=== PATIENT | female | born 1985 | race Caucasian/White ===

== ENCOUNTER 2020-06-14 07:23 | Emergency (ER) | payer OTHER ==
[2020-06-14] MEDS ORDERED: Morphine 4 MG/ML VIAL ONE (08:06)
[2020-06-14] MEDS ORDERED: Metoclopramide HCl 10 MG/2 ML VIAL ONE (08:06)
[2020-06-14 08:28] LABS: #Basophils 0.1 10x3/uL (0.0-0.2); #Eosinphils 0.1 10x3/uL (0.0-0.5); #Monocytes 0.7 10x3/uL (0.0-1.1); #Neutrophils 4.4 10x3/uL (1.5-8.4); %Basophils 0.5 % (0.0-2.0); %Eosinophils 1.1 % (0.0-6.0); %Lymphocytes 45.9 % (18.0-47.0); Hemoglobin 13.2 g/dL (12.0-15.5); Mean Corpuscular HGB CONC 32.9 g/dL (32.0-36.0); Mean Corpuscular Hemoglobin 30.6 pg (27.0-33.0); Mean Corpuscular Volume 92.8 fl (81.6-98.3); Mean Platelet Volume 8.8 fl (7.4-10.4); Platelet Count 296 10x3/uL (150-450); RBC Distribution Width 11.9 % (11.5-14.5); Red Blood Cell (RBC) Count 4.32 10x6/uL (3.90-5.03); White Blood Cell (WBC) Count 9.9 10x3/uL (3.5-10.5)
[2020-06-14 08:48] LABS: Pregnancy Test - Urine (BHCG) Negative (Negative); Pregu Control Background? CLEAR/WHITE (CLR/WHITE); Pregu Control Bar Appear? YES (CONTROL BAR)
[2020-06-14 09:04] LABS: ALT (SGPT) 17 U/L (8-55); AST (SGOT) 14 U/L (5-34); Albumin 4.5 g/dL (3.5-5.0); Alkaline Phosphatase 66 U/L (40-110); Anion Gap 17 mmol/L (10-20); BUN (Urea Nitrogen) 14 mg/dL (7.0-18.7); Bilirubin, Total 0.2 mg/dL (0.2-1.2); Calc. Creatinine Clearance 0 mL/min (70-130); Calcium 8.9 mg/dL (7.8-10.44); Carbon Dioxide 15 mmol/L (22-29); Chloride 112 mmol/L (98-107); Globulin 2.6 g/dL (2.4-3.5); Glucose 105 mg/dL (70-105); Lipase 72 U/L (8-78); Potassium 3.4 mmol/L (3.5-5.1); Protein, Total 7.1 g/dL (6.0-8.3); Sodium 141 mmol/L (136-145)
[2020-06-14 09:11] LABS: Bilirubin Neg (Negative); Blood, Urine Negative (Negative); Clarity Clear (Clear); Glucose, Urine (Dipstick) Normal (Negative); Ketone, Urine Negative (Negative); Leukocyte 25 (Negative); Nitrite Negative (Negative); Protein, Urine (Dipstick) Negative (Neg-Trace); Urobilinogen Normal mg/dL (Less than 2)
[2020-06-14 09:15] LABS: RBC/HPF None Seen HPF (0-3); Squamous Epithelial 0-3 HPF (0-3); WBC/HPF 0-3 HPF (0-3)
[2020-06-14 09:16] LABS: Bacteria/HPF Rare-Few HPF (None Seen)
== END 2020-06-14 10:30 | disposition home or self-care (01) ==
LOC: CSHERS 07:23
DX: R10.31 Right lower quadrant pain (principal); R10.32 Left lower quadrant pain; J45.909 Unspecified asthma, uncomplicated; E66.9 Obesity, unspecified; F17.210 Nicotine dependence, cigarettes, uncomplicated
CPT/HCPCS: 74177; 80053; 81003; 81015; 81025; 83690; 85025; 96365; 96375; J2270; J2765

== ENCOUNTER 2021-04-02 21:37 | Emergency (ER) | payer OTHER | END 2021-04-02 22:51 | disposition left against medical advice (07) | LOC: CSHERS 21:37 | DX: Z53.21 Procedure and treatment not carried out due to patient leaving prior to being seen by health care provider (principal) ==

== ENCOUNTER 2022-06-09 20:55 | Emergency (ER) | payer OTHER ==
[2022-06-09 23:53] LABS: #Eosinphils 0.1 10x3/uL (0.0-0.5); #Monocytes 0.5 10x3/uL (0.0-1.1); #Neutrophils 5.7 10x3/uL (1.5-8.4); %Basophils 0.3 % (0.0-2.0); %Eosinophils 1.2 % (0.0-6.0); %Lymphocytes 42.6 % (18.0-47.0); %Monocytes 4.5 % (0.0-10.0); Hemoglobin 12.8 g/dL (12.0-15.5); Mean Corpuscular HGB CONC 33.2 g/dL (32.0-36.0); Mean Corpuscular Hemoglobin 29.6 pg (27.0-33.0); Mean Corpuscular Volume 88.9 fl (81.6-98.3); Mean Platelet Volume 8.7 fl (7.4-10.4); Platelet Count 349 10x3/uL (150-450); Red Blood Cell (RBC) Count 4.33 10x6/uL (3.90-5.03); White Blood Cell (WBC) Count 11.2 10x3/uL (3.5-10.5)
[2022-06-10 00:08] LABS: ALT (SGPT) 21 U/L (8-55); AST (SGOT) 15 U/L (5-34); Albumin 4.5 g/dL (3.5-5.0); Alkaline Phosphatase 79 U/L (40-110); Anion Gap 16 mmol/L (10-20); BUN (Urea Nitrogen) 10 mg/dL (7.0-18.7); Bilirubin, Total 0.3 mg/dL (0.2-1.2); Calc. Creatinine Clearance 0 mL/min (70-130); Carbon Dioxide 16 mmol/L (22-29); Chloride 112 mmol/L (98-107); Estimated GFR 90; Globulin 2.4 g/dL (2.4-3.5); Glucose 100 mg/dL (70-105); Potassium 3.3 mmol/L (3.5-5.1); Protein, Total 6.9 g/dL (6.0-8.3); Sodium 141 mmol/L (136-145)
== END 2022-06-10 00:29 | disposition home or self-care (01) ==
LOC: CSHERS 20:55
DX: R07.9 Chest pain, unspecified (principal); F17.210 Nicotine dependence, cigarettes, uncomplicated
CPT/HCPCS: 36415; 71045; 80053; 83880; 84484; 85025; 93005

== ENCOUNTER 2022-07-14 12:57 | Emergency (ER) | payer OTHER ==
[2022-07-14 13:54] LABS: #Basophils 0.1 10x3/uL (0.0-0.2); #Eosinphils 0.1 10x3/uL (0.0-0.5); #Monocytes 0.6 10x3/uL (0.0-1.1); #Neutrophils 6.2 10x3/uL (1.5-8.4); %Basophils 0.5 % (0.0-2.0); %Eosinophils 0.5 % (0.0-6.0); %Lymphocytes 28.8 % (18.0-47.0); %Monocytes 5.6 % (0.0-10.0); %Neutrophils 63.5 % (40.0-75.0); Hemoglobin 12.9 g/dL (12.0-15.5); Mean Corpuscular HGB CONC 32.8 g/dL (32.0-36.0); Mean Corpuscular Hemoglobin 30.1 pg (27.0-33.0); Mean Corpuscular Volume 91.8 fl (81.6-98.3); Mean Platelet Volume 8.6 fl (7.4-10.4); Platelet Count 430 10x3/uL (150-450); RBC Distribution Width 12.7 % (11.5-14.5); Red Blood Cell (RBC) Count 4.28 10x6/uL (3.90-5.03); White Blood Cell (WBC) Count 9.8 10x3/uL (3.5-10.5)
[2022-07-14] MEDS ORDERED: Lidocaine Viscous Sol 2% 15 ml UD Cup ONE (13:54)
[2022-07-14] MEDS ORDERED: Mag-Al Plus 1200 MG/1200 MG/120 MG/30 ML UDCUP ONE (13:54)
[2022-07-14 14:06] LABS: ALT (SGPT) 10 U/L (8-55); AST (SGOT) 9 U/L (5-34); Albumin 4.6 g/dL (3.5-5.0); Alkaline Phosphatase 79 U/L (40-110); Anion Gap 16 mmol/L (10-20); BUN (Urea Nitrogen) 11 mg/dL (7.0-18.7); Bilirubin, Total 0.1 mg/dL (0.2-1.2); Calc. Creatinine Clearance 0 mL/min (70-130); Calcium 9.2 mg/dL (7.8-10.44); Carbon Dioxide 14 mmol/L (22-29); Chloride 114 mmol/L (98-107); Estimated GFR 99; Globulin 2.3 g/dL (2.4-3.5); Glucose 102 mg/dL (70-105); Lipase 73 U/L (8-78); Potassium 4.4 mmol/L (3.5-5.1); Protein, Total 6.9 g/dL (6.0-8.3); Sodium 140 mmol/L (136-145)
[2022-07-14] MEDS ORDERED: predniSONE 20 MG TAB ONE (14:36)
[2022-07-14] MEDS ORDERED: Ipratropium/Albuterol 3 ML NEB ONE (14:38)
[2022-07-14] MEDS ORDERED: Metoclopramide HCl 10 MG TAB ONE (15:47)
== END 2022-07-14 16:45 | disposition home or self-care (01) ==
LOC: CSHERS 12:57
DX: J45.901 Unspecified asthma with (acute) exacerbation (principal); E86.0 Dehydration; F17.210 Nicotine dependence, cigarettes, uncomplicated
CPT/HCPCS: 36415; 71045; 80053; 83690; 84484; 85025; 93005; 94640; 94760; J7512; J7620

== ENCOUNTER 2022-07-23 03:55 | Emergency (ER) | payer MEDICARE, OTHER ==
[2022-07-23] MEDS ORDERED: diphenhydrAMINE 50 MG/ML VIAL ONE ×2 (04:21→05:45)
[2022-07-23] MEDS ORDERED: Metoclopramide HCl 10 MG/2 ML VIAL ONE ×2 (04:21→05:44)
[2022-07-23] MEDS ORDERED: Ketorolac Tromethamine 30 MG/ML VIAL ONE (04:21)
[2022-07-23 04:41] LABS: #Basophils 0.1 10x3/uL (0.0-0.2); #Eosinphils 0.1 10x3/uL (0.0-0.5); #Monocytes 1.1 10x3/uL (0.0-1.1); %Basophils 0.5 % (0.0-2.0); %Eosinophils 0.7 % (0.0-6.0); %Lymphocytes 31.4 % (18.0-47.0); %Monocytes 6.5 % (0.0-10.0); %Neutrophils 59.7 % (40.0-75.0); Hemoglobin 14.2 g/dL (12.0-15.5); Mean Corpuscular HGB CONC 33.7 g/dL (32.0-36.0); Mean Corpuscular Hemoglobin 30.1 pg (27.0-33.0); Mean Corpuscular Volume 89.4 fl (81.6-98.3); Mean Platelet Volume 8.7 fl (7.4-10.4); Platelet Count 430 10x3/uL (150-450); RBC Distribution Width 12.9 % (11.5-14.5); Red Blood Cell (RBC) Count 4.71 10x6/uL (3.90-5.03); White Blood Cell (WBC) Count 16.8 10x3/uL (3.5-10.5)
[2022-07-23 04:53] LABS: BHCG - Serum Negative (NEGATIVE); Pregs Control Background? CLEAR/WHITE (CLR/WHITE); Pregs Control Bar Appear? YES (CONTROL BAR)
[2022-07-23 04:56] LABS: ALT (SGPT) 12 U/L (8-55); AST (SGOT) 9 U/L (5-34); Albumin 4.8 g/dL (3.5-5.0); Alkaline Phosphatase 70 U/L (40-110); Anion Gap 18 mmol/L (10-20); BUN (Urea Nitrogen) 12 mg/dL (7.0-18.7); Bilirubin, Total 0.2 mg/dL (0.2-1.2); Calc. Creatinine Clearance 0 mL/min (70-130); Calcium 9.7 mg/dL (7.8-10.44); Carbon Dioxide 18 mmol/L (22-29); Chloride 110 mmol/L (98-107); Estimated GFR 89; Globulin 2.8 g/dL (2.4-3.5); Glucose 119 mg/dL (70-105); Lipase 121 U/L (8-78); Potassium 3.6 mmol/L (3.5-5.1); Protein, Total 7.6 g/dL (6.0-8.3); Sodium 142 mmol/L (136-145)
[2022-07-23] MEDS ORDERED: Haloperidol Lactate 5 MG/ML VIAL ONE (06:22)
== END 2022-07-23 06:54 | disposition home or self-care (01) ==
LOC: CSHERS 03:55
DX: G43.919 Migraine, unspecified, intractable, without status migrainosus (principal); E66.9 Obesity, unspecified; F17.210 Nicotine dependence, cigarettes, uncomplicated
CPT/HCPCS: 80053; 83690; 84703; 85025; 99284; J1200; J1630; J1885; J2765

== ENCOUNTER 2022-09-21 20:21 | Emergency (ER) | payer OTHER, MEDICAID ==
[2022-09-21] MEDS ORDERED: Metoclopramide HCl 10 MG/2 ML VIAL ONE ×2 (22:17→23:29)
[2022-09-21] MEDS ORDERED: Ketorolac Tromethamine 30 MG/ML VIAL ONE ×2 (22:17→23:30)
[2022-09-21 22:47] LABS: #Basophils 0.1 10x3/uL (0.0-0.2); #Eosinphils 0.1 10x3/uL (0.0-0.5); #Monocytes 0.8 10x3/uL (0.0-1.1); #Neutrophils 5.5 10x3/uL (1.5-8.4); %Basophils 0.4 % (0.0-2.0); %Eosinophils 0.8 % (0.0-6.0); %Lymphocytes 42.4 % (18.0-47.0); %Monocytes 7.4 % (0.0-10.0); %Neutrophils 48.6 % (40.0-75.0); Hemoglobin 15.7 g/dL (12.0-15.5); Mean Corpuscular HGB CONC 34.3 g/dL (32.0-36.0); Mean Corpuscular Hemoglobin 30.1 pg (27.0-33.0); Mean Corpuscular Volume 87.7 fl (81.6-98.3); Mean Platelet Volume 8.6 fl (7.4-10.4); Platelet Count 408 10x3/uL (150-450); RBC Distribution Width 12.4 % (11.5-14.5); Red Blood Cell (RBC) Count 5.22 10x6/uL (3.90-5.03); White Blood Cell (WBC) Count 11.3 10x3/uL (3.5-10.5)
[2022-09-21 22:56] LABS: ALT (SGPT) 17 U/L (8-55); AST (SGOT) 18 U/L (5-34); Albumin 4.9 g/dL (3.5-5.0); Alkaline Phosphatase 82 U/L (40-110); Anion Gap 15 mmol/L (10-20); BUN (Urea Nitrogen) 9 mg/dL (7.0-18.7); Bilirubin, Total 0.2 mg/dL (0.2-1.2); Calc. Creatinine Clearance 0 mL/min (70-130); Calcium 9.8 mg/dL (7.8-10.44); Carbon Dioxide 18 mmol/L (22-29); Chloride 108 mmol/L (98-107); Estimated GFR 74; Globulin 3.4 g/dL (2.4-3.5); Glucose 89 mg/dL (70-105); Potassium 3.3 mmol/L (3.5-5.1); Protein, Total 8.3 g/dL (6.0-8.3); Sodium 138 mmol/L (136-145)
[2022-09-21] MEDS ORDERED: diphenhydrAMINE 50 MG/ML VIAL ONE (23:30)
== END 2022-09-22 00:50 | disposition home or self-care (01) ==
LOC: CSHERS 20:21
DX: S09.90XA Unspecified injury of head, initial encounter (principal); G43.909 Migraine, unspecified, not intractable, without status migrainosus; J45.909 Unspecified asthma, uncomplicated; W19.XXXA Unspecified fall, initial encounter
CPT/HCPCS: 36416; 70450; 71045; 80053; 85025; 96374; 96375; 96376; J1200; J1885; J2765

== ENCOUNTER 2022-11-09 15:12 | Emergency (ER) | payer OTHER, MEDICARE ==
[2022-11-09] MEDS ORDERED: diphenhydrAMINE 50 MG/ML VIAL ONE (18:31)
[2022-11-09] MEDS ORDERED: Ketorolac Tromethamine 30 MG/ML VIAL ONE (18:31)
[2022-11-09] MEDS ORDERED: Metoclopramide HCl 10 MG/2 ML VIAL ONE (18:31)
[2022-11-09] MEDS ORDERED: Dexamethasone 10 MG/ML VIAL ONE (18:32)
[2022-11-09 19:04] LABS: #Basophils 0.1 10x3/uL (0.0-0.2); #Eosinphils 0.2 10x3/uL (0.0-0.5); #Monocytes 0.7 10x3/uL (0.0-1.1); #Neutrophils 6.1 10x3/uL (1.5-8.4); %Basophils 0.5 % (0.0-2.0); %Eosinophils 1.4 % (0.0-6.0); %Lymphocytes 34.8 % (18.0-47.0); %Monocytes 6.2 % (0.0-10.0); %Neutrophils 56.5 % (40.0-75.0); Hematocrit 38.3 % (34.9-44.5); Hemoglobin 12.1 g/dL (12.0-15.5); Mean Corpuscular HGB CONC 31.6 g/dL (32.0-36.0); Mean Corpuscular Hemoglobin 30.7 pg (27.0-33.0); Mean Corpuscular Volume 97.2 fl (81.6-98.3); Mean Platelet Volume 9.3 fl (7.4-10.4); Platelet Count 380 10x3/uL (150-450); RBC Distribution Width 13.6 % (11.5-14.5); Red Blood Cell (RBC) Count 3.94 10x6/uL (3.90-5.03); White Blood Cell (WBC) Count 10.8 10x3/uL (3.5-10.5)
[2022-11-09 19:16] LABS: Anion Gap 17 mmol/L (10-20); BUN (Urea Nitrogen) 22 mg/dL (7.0-18.7); Calc. Creatinine Clearance 0 mL/min (70-130); Carbon Dioxide 18 mmol/L (22-29); Chloride 112 mmol/L (98-107); Potassium 3.9 mmol/L (3.5-5.1); Sodium 143 mmol/L (136-145)
[2022-11-09 19:17] LABS: Calcium 9.3 mg/dL (7.8-10.44); Estimated GFR 99; Glucose 83 mg/dL (70-105)
[2022-11-09 19:19] LABS: BHCG - Serum Negative (NEGATIVE); Pregs Control Background? CLEAR/WHITE (CLR/WHITE); Pregs Control Bar Appear? YES (CONTROL BAR)
== END 2022-11-09 19:40 | disposition home or self-care (01) ==
LOC: CSHERS 15:12
DX: G43.909 Migraine, unspecified, not intractable, without status migrainosus (principal); R11.0 Nausea
CPT/HCPCS: 36415; 80048; 84703; 85025; 85652; 96374; 96375; J1100; J1200; J1885; J2765

== ENCOUNTER 2022-11-21 17:09 | Emergency (ER) | payer OTHER, MEDICARE ==
[2022-11-21 19:05] LABS: ALT (SGPT) 14 U/L (8-55); AST (SGOT) 13 U/L (5-34); Albumin 4.6 g/dL (3.5-5.0); Alkaline Phosphatase 82 U/L (40-110); Anion Gap 15 mmol/L (10-20); BUN (Urea Nitrogen) 22 mg/dL (7.0-18.7); Bilirubin, Total 0.3 mg/dL (0.2-1.2); Calc. Creatinine Clearance 0 mL/min (70-130); Calcium 9.3 mg/dL (7.8-10.44); Carbon Dioxide 19 mmol/L (22-29); Chloride 111 mmol/L (98-107); Estimated GFR 90; Globulin 2.7 g/dL (2.4-3.5); Glucose 81 mg/dL (70-105); Potassium 3.9 mmol/L (3.5-5.1); Protein, Total 7.3 g/dL (6.0-8.3); Sodium 141 mmol/L (136-145)
[2022-11-21 19:06] LABS: #Basophils 0.1 10x3/uL (0.0-0.2); #Eosinphils 0.1 10x3/uL (0.0-0.5); #Monocytes 0.9 10x3/uL (0.0-1.1); #Neutrophils 7.1 10x3/uL (1.5-8.4); %Basophils 0.4 % (0.0-2.0); %Eosinophils 0.9 % (0.0-6.0); %Lymphocytes 35.7 % (18.0-47.0); %Monocytes 6.8 % (0.0-10.0); %Neutrophils 55.6 % (40.0-75.0); Hematocrit 41.4 % (34.9-44.5); Hemoglobin 13.5 g/dL (12.0-15.5); Mean Corpuscular HGB CONC 32.6 g/dL (32.0-36.0); Mean Corpuscular Hemoglobin 30.4 pg (27.0-33.0); Mean Corpuscular Volume 93.2 fl (81.6-98.3); Mean Platelet Volume 9.1 fl (7.4-10.4); Platelet Count 354 10x3/uL (150-450); RBC Distribution Width 13.2 % (11.5-14.5); Red Blood Cell (RBC) Count 4.44 10x6/uL (3.90-5.03); White Blood Cell (WBC) Count 12.7 10x3/uL (3.5-10.5)
[2022-11-21 20:52] LABS: Actual Bicarbonate (HCO3v) 20.3 mEq/L (22-28); Base Excess -5.1 mEq/L (-2 - +2); Calcium, Ionized (venous) 1.16 mmol/L (1.16-1.32); Chloride (VBG) 112 mmol/L (98-106); Critical Notified By: CP.PH; Hematocrit-VBG 41 % (36.0-47.0); Hemoglobin (Hb) 13.8 g/dL (11.7-15.5); Potassium (VBG) 4.22 mmol/L (3.70-5.30); Puncture Site Other Site; RapidComm Collect By LAB.YY; Sodium 142.3 mmol/L (133-146); pH (venous) 7.333 (7.32-7.43)
== END 2022-11-21 20:00 | disposition home or self-care (01) ==
LOC: CSHERS 17:09
DX: R56.9 Unspecified convulsions (principal); F17.210 Nicotine dependence, cigarettes, uncomplicated
CPT/HCPCS: 80053; 82550; 82805; 84702; 85025; 93005

== ENCOUNTER 2022-12-02 07:18 | Emergency (ER) | payer OTHER, MEDICARE ==
[2022-12-02] MEDS ORDERED: Lidocaine 1% w/Epinephrine 1:200K 30 ML VIAL ONE (07:55)
[2022-12-02] MEDS ORDERED: Metoclopramide HCl 10 MG TAB ONE (08:14)
== END 2022-12-02 08:12 | disposition home or self-care (01) ==
LOC: CSHERS 07:18
DX: N76.4 Abscess of vulva (principal); F17.210 Nicotine dependence, cigarettes, uncomplicated
CPT/HCPCS: 56405

== ENCOUNTER 2022-12-16 16:28 | Emergency (ER) | payer OTHER, MEDICARE ==
[2022-12-16 17:40] LABS: SARS-CoV-2 NAA Rapid Test Not Detected (NotDetected)
[2022-12-16] MEDS ORDERED: Ipratropium/Albuterol 3 ML NEB ONE (17:56)
== END 2022-12-16 18:19 | disposition home or self-care (01) ==
LOC: CSHERS 16:28
DX: B34.9 Viral infection, unspecified (principal); Z20.822 Contact with and (suspected) exposure to COVID-19; F17.210 Nicotine dependence, cigarettes, uncomplicated
CPT/HCPCS: 0240U; 94640; 94760; 99283; J7620

== ENCOUNTER 2023-03-03 19:45 | Day surgery (SDC) | payer OTHER ==
[2023-03-03] MEDS ORDERED: hydrALAZINE 20 MG/ML VIAL SLOW IVP PRN (20:27)
[2023-03-03 20:31] VITALS: BMI 36.9
== END 2023-03-03 20:58 | disposition admitted as inpatient to this hospital (09) ==
LOC: CSHLD/OP 19:45
PROVIDERS: ATTEND Obstetrics & Gynecology
DX: O99.891 Other specified diseases and conditions complicating pregnancy (principal); R10.2 Pelvic and perineal pain
CPT/HCPCS: 76857

== ENCOUNTER 2023-03-03 21:06 | Emergency (ER) | payer OTHER | END 2023-03-03 21:18 | LOC: CSHERS 21:06 | DX: Z53.21 Procedure and treatment not carried out due to patient leaving prior to being seen by health care provider (principal) ==

== ENCOUNTER 2023-05-18 15:19 | Emergency (ER) | payer OTHER ==
[2023-05-18] MEDS ORDERED: Ketorolac Tromethamine 30 MG (1 mL) VIAL ONE (16:11)
[2023-05-18 16:22] LABS: Hematocrit 43.8 % (34.9-44.5); Hemoglobin 15.8 g/dL (12.0-15.5); MDiff Complete? YES; Mean Corpuscular HGB CONC 36.1 g/dL (32.0-36.0); Mean Corpuscular Hemoglobin 31.7 pg (27.0-33.0); Platelet Count 327 10x3/uL (150-450); RBC Distribution Width 12.5 % (11.5-14.5); Red Blood Cell (RBC) Count 4.98 10x6/uL (3.90-5.03); White Blood Cell (WBC) Count 10.1 10x3/uL (3.5-10.5)
[2023-05-18 16:26] LABS: BHCG - Serum Negative (NEGATIVE); Pregs Control Background? CLEAR/WHITE (CLR/WHITE); Pregs Control Bar Appear? YES (CONTROL BAR)
[2023-05-18 16:55] LABS: ALT (SGPT) 19 U/L (8-55); AST (SGOT) 25 U/L (5-34); Albumin 4.5 g/dL (3.5-5.0); Alkaline Phosphatase 80 U/L (40-110); Anion Gap 19 mmol/L (10-20); BUN (Urea Nitrogen) 10 mg/dL (7.0-18.7); Bilirubin, Total 0.2 mg/dL (0.2-1.2); Calc. Creatinine Clearance 0 mL/min (70-130); Calcium 9.2 mg/dL (7.8-10.44); Carbon Dioxide 14 mmol/L (22-29); Chloride 106 mmol/L (98-107); Estimated GFR 117; Globulin 3.9 g/dL (2.4-3.5); Glucose 109 mg/dL (70-105); Lipase 67 U/L (8-78); Potassium 4.3 mmol/L (3.5-5.1); Protein, Total 8.4 g/dL (6.0-8.3); Sodium 135 mmol/L (136-145)
[2023-05-18 17:03] LABS: SARS-CoV-2 NAA Rapid Test DETECTED (NotDetected)
[2023-05-18 17:33] LABS: Lymphocytes 37 % (21-51); Monocytes 5 % (0-10); Neutrophil 57 % (42-75); Reactive Lymphocytes 1 % (0-10)
[2023-05-18 17:36] LABS: RBC Morph Comment Within Normal Limits; Smudge Cells SLIGHT; Toxic Granulation SLIGHT; Vacuoles SLIGHT
[2023-05-18 17:37] LABS: Platelet Adequacy Comment Appears Adequate
== END 2023-05-18 19:09 | disposition home or self-care (01) ==
LOC: CSHERS 15:19
DX: U07.1 COVID-19 (principal); R10.9 Unspecified abdominal pain; I10 Essential (primary) hypertension
CPT/HCPCS: 0240U; 74177; 80053; 83690; 84703; 85025; 96361; 96374; 99284; 36415; J1885

== ENCOUNTER 2023-09-07 22:38 | Observation (INO) | payer OTHER, SELFPAY ==
[2023-09-07] MEDS ORDERED: diphenhydrAMINE 50 MG/ML VIAL ONE (22:58)
[2023-09-07] MEDS ORDERED: Ketorolac Tromethamine 30 MG (1 mL) VIAL ONE (22:58)
[2023-09-07] MEDS ORDERED: Metoclopramide HCl 10 MG (2 mL) VIAL ONE (22:58)
[2023-09-07 23:49] LABS: #Basophils 0.05 10x3/uL (0.0-0.2); #Neutrophils 5.36 10x3/uL (1.5-8.4); %Basophils 0.5 % (0.0-2.0); %Eosinophils 1.9 % (0.0-6.0); %Lymphocytes 36.9 % (18.0-47.0); %Monocytes 7.7 % (0.0-10.0); %Neutrophils 51.9 % (40.0-75.0); Hematocrit 39.6 % (34.9-44.5); Hemoglobin 13.6 g/dL (12.0-15.5); Mean Corpuscular HGB CONC 34.3 g/dL (32.0-36.0); Mean Corpuscular Hemoglobin 31.9 pg (27.0-33.0); Mean Platelet Volume 8.6 fl (7.4-10.4); Platelet Count 304 10x3/uL (150-450); RBC Distribution Width 12.9 % (11.5-14.5); Red Blood Cell (RBC) Count 4.26 10x6/uL (3.90-5.03); White Blood Cell (WBC) Count 10.3 10x3/uL (3.5-10.5)
[2023-09-08 00:01] LABS: BHCG - Serum Negative (NEGATIVE); Pregs Control Background? CLEAR/WHITE (CLR/WHITE); Pregs Control Bar Appear? YES (CONTROL BAR)
[2023-09-08 00:10] LABS: ALT (SGPT) 27 U/L (8-55); AST (SGOT) 46 U/L (5-34); Alkaline Phosphatase 71 U/L (40-110); Anion Gap 15 mmol/L (10-20); BUN (Urea Nitrogen) 15 mg/dL (7.0-18.7); Bilirubin, Total 0.3 mg/dL (0.2-1.2); Calc. Creatinine Clearance 0 mL/min (70-130); Calcium 9.4 mg/dL (7.8-10.44); Carbon Dioxide 19 mmol/L (22-29); Chloride 107 mmol/L (98-107); Estimated GFR 115; Globulin 3.2 g/dL (2.4-3.5); Glucose 102 mg/dL (70-105); Potassium 3.7 mmol/L (3.5-5.1); Protein, Total 7.2 g/dL (6.0-8.3); Sodium 137 mmol/L (136-145)
[2023-09-08 00:16] LABS: Troponin I Less than 0.010 ng/mL (< 0.028)
[2023-09-08] MEDS ORDERED: Dextrose 50% Abboject 50 ML SYRINGE SLOW IVP PRN (01:52)
[2023-09-08] MEDS ORDERED: Calcium Carbonate 500 MG ChewTAB PO PRN (01:52)
[2023-09-08] MEDS ORDERED: Ondansetron PF 4 MG/2 ML Vial IVP PRN (01:52)
[2023-09-08] MEDS ORDERED: Guaifenesin DM 100-10/5 ML UDCUP PO PRN (01:52)
[2023-09-08] MEDS ORDERED: Dextrose 5% in Water 1,000 ML IV PRN (01:52)
[2023-09-08] MEDS ORDERED: HumaLOG 300 UNITS/3 ML VIAL SC PRN (01:52)
[2023-09-08] MEDS ORDERED: Glucagon 1 MG/ML KIT IM PRN (01:52)
[2023-09-08] MEDS ORDERED: Albuterol 2.5 MG (3 mL) NEB NEB PRN (02:17)
[2023-09-08 03:27] VITALS: BMI 40.3
[2023-09-08 03:52] LABS: Anion Gap 16 mmol/L (10-20); BUN (Urea Nitrogen) 16 mg/dL (7.0-18.7); Calc. Creatinine Clearance 189 mL/min (70-130); Calcium 9.4 mg/dL (7.8-10.44); Carbon Dioxide 18 mmol/L (22-29); Chloride 105 mmol/L (98-107); Estimated GFR 105; Glucose 107 mg/dL (70-105); Potassium 3.8 mmol/L (3.5-5.1); Sodium 135 mmol/L (136-145)
[2023-09-08] MEDS: Dexamethasone 4 mg/ml Vial SLOW IVP SCH (03:55)
[2023-09-08] MEDS: Prochlorperazine Edisylate 10 MG in Sodium Chloride 0.9% 50 ML IVPB SCH ×2 (03:55→09:50)
[2023-09-08] MEDS: Ketorolac Tromethamine 30 MG (1 mL) VIAL IVP SCH (06:06)
[2023-09-08] MEDS: Pantoprazole DR 40 MG TAB PO SCH (09:44)
[2023-09-08] MEDS: Alogliptin 25 MG TAB PO SCH (09:44)
[2023-09-08] MEDS: Aspirin 81 mg Enteric Coated Tablet PO SCH ×2 (09:44→09:51)
[2023-09-08] MEDS: Acetaminophen 325 MG TAB PO PRN (09:50)
[2023-09-08] MEDS: FLUoxetine HCl 10 MG CAP PO SCH (09:59)
[2023-09-08 16:26] VITALS: BP 124/72; TEMP 97
[2023-09-08] MEDS ORDERED: Enoxaparin 40 MG (0.4 mL) SYRINGE SC SCH (21:00)
[2023-09-08] MEDS ORDERED: FLUoxetine HCl 10 MG CAP PO SCH (21:00)
[2023-09-08] MEDS ORDERED: Atorvastatin Calcium 40 MG TAB PO SCH (21:00)
== END 2023-09-08 16:20 | disposition home or self-care (01) ==
LOC: CSHERS 22:38 → CSHTELE 09-08 01:52
PROVIDERS: ADMIT Student in an Organized Health Care Education/Training Program; ATTEND Internal Medicine
DX: G43.109 Migraine with aura, not intractable, without status migrainosus (principal); R47.81 Slurred speech; R20.0 Anesthesia of skin; E78.5 Hyperlipidemia, unspecified; E11.9 Type 2 diabetes mellitus without complications; E28.2 Polycystic ovarian syndrome; L73.2 Hidradenitis suppurativa; J45.909 Unspecified asthma, uncomplicated; F41.9 Anxiety disorder, unspecified; F32.A Depression, unspecified; E66.9 Obesity, unspecified; F43.10 Post-traumatic stress disorder, unspecified; Z68.41 Body mass index [BMI] 40.0-44.9, adult; Z98.890 Other specified postprocedural states; Z90.49 Acquired absence of other specified parts of digestive tract; Z87.59 Personal history of other complications of pregnancy, childbirth and the puerperium; F17.210 Nicotine dependence, cigarettes, uncomplicated; Z91.018 Allergy to other foods; Z91.048 Other nonmedicinal substance allergy status; Z91.040 Latex allergy status; Z88.0 Allergy status to penicillin; Z88.8 Allergy status to other drugs, medicaments and biological substances; Z79.890 Hormone replacement therapy; Z79.899 Other long term (current) drug therapy; Z79.82 Long term (current) use of aspirin
CPT/HCPCS: 36415; 36416; 70450; 70496; 70498; 70551; 80048; 80053; 84484; 84703; 85025; 86140; 93005; 96365; 96375; 96376; G0378; J0780; J1100; J1200; J1815; J1885; J2765

== ENCOUNTER 2023-09-25 21:20 | Emergency (ER) | payer OTHER ==
[2023-09-25] MEDS ORDERED: Metoclopramide HCl 10 MG (2 mL) VIAL ONE (22:41)
[2023-09-25] MEDS ORDERED: diphenhydrAMINE 50 MG/ML VIAL ONE (22:41)
[2023-09-25 23:06] LABS: ALT (SGPT) 26 U/L (8-55); AST (SGOT) 48 U/L (5-34); Albumin 2.9 g/dL (3.5-5.0); Alkaline Phosphatase 78 U/L (40-110); Anion Gap 20 mmol/L (10-20); BUN (Urea Nitrogen) 24 mg/dL (7.0-18.7); Bilirubin, Total 0.6 mg/dL (0.2-1.2); Calc. Creatinine Clearance 0 mL/min (70-130); Calcium 9.6 mg/dL (7.8-10.44); Carbon Dioxide 16 mmol/L (22-29); Chloride 94 mmol/L (98-107); Estimated GFR 54; Glucose 116 mg/dL (70-105); Potassium 2.7 mmol/L (3.5-5.1); Protein, Total 7.9 g/dL (6.0-8.3); Sodium 127 mmol/L (136-145)
[2023-09-25 23:09] LABS: #Basophils 0.06 10x3/uL (0.0-0.2); #Eosinphils 0.04 10x3/uL (0.0-0.5); #Monocytes 1.61 10x3/uL (0.0-1.1); #Neutrophils 14.21 10x3/uL (1.5-8.4); %Basophils 0.3 % (0.0-2.0); %Eosinophils 0.2 % (0.0-6.0); %Monocytes 9.1 % (0.0-10.0); %Neutrophils 80.3 % (40.0-75.0); Hematocrit 32.8 % (34.9-44.5); Hemoglobin 11.9 g/dL (12.0-15.5); Mean Corpuscular HGB CONC 36.3 g/dL (32.0-36.0); Mean Corpuscular Hemoglobin 30.8 pg (27.0-33.0); Mean Platelet Volume 9.4 fL (7.4-10.4); Platelet Count 308 10x3/uL (150-450); RBC Distribution Width 12.6 % (11.5-14.5); Red Blood Cell (RBC) Count 3.86 10x6/uL (3.90-5.03); White Blood Cell (WBC) Count 17.7 10x3/uL (3.5-10.5)
== END 2023-09-26 01:39 | disposition home or self-care (01) ==
LOC: CSHERS 21:20
DX: E86.0 Dehydration (principal); E87.6 Hypokalemia; E11.9 Type 2 diabetes mellitus without complications; E78.00 Pure hypercholesterolemia, unspecified; Z79.899 Other long term (current) drug therapy
CPT/HCPCS: 80053; 85025; 93005; 96361; 96365; 96375; J1200; J2765

== ENCOUNTER 2024-12-07 15:39 | Emergency (ER) | payer MEDICARE, MEDICAID ==
[2024-12-07] MEDS ORDERED: Ketorolac Tromethamine 30 MG (1 mL) VIAL ONE (16:56)
[2024-12-07] MEDS ORDERED: diphenhydrAMINE 50 MG/ML VIAL ONE (16:56)
[2024-12-07] MEDS ORDERED: Metoclopramide HCl 10 MG (2 mL) VIAL ONE (16:56)
[2024-12-07] MEDS ORDERED: Acetaminophen 500 MG TAB ONE (16:57)
== END 2024-12-07 18:23 | disposition home or self-care (01) ==
LOC: CSHERS 15:39
DX: G43.909 Migraine, unspecified, not intractable, without status migrainosus (principal); E11.9 Type 2 diabetes mellitus without complications; E78.00 Pure hypercholesterolemia, unspecified; F17.210 Nicotine dependence, cigarettes, uncomplicated; Z79.85 Long-term (current) use of injectable non-insulin antidiabetic drugs
CPT/HCPCS: J1200; J1885; J2765; 96374; 96375

== ENCOUNTER 2025-01-09 14:27 | Outpatient (CLI) | payer MEDICARE, MEDICAID | END 2025-01-09 14:28 | disposition home or self-care (01) | LOC: CSHMRI 14:27 | PROVIDERS: ATTEND Orthopaedic Surgery Hand Surgery | DX: S63.591A Other specified sprain of right wrist, initial encounter (principal); S66.811A Strain of other specified muscles, fascia and tendons at wrist and hand level, right hand, initial encounter ==

== ENCOUNTER 2025-01-22 13:52 | Emergency (ER) | payer MEDICARE, MEDICAID ==
[2025-01-22 14:56] LABS: #Basophils 0.06 10x3/uL (0.0-0.2); #Eosinophils 0.13 10x3/uL (0.0-0.5); #Monocytes 0.70 10x3/uL (0.0-1.1); #Neutrophils 5.12 10x3/uL (1.5-8.4); %Basophils 0.6 % (0.0-2.0); %Eosinophils 1.2 % (0.0-6.0); %Lymphocytes 42.2 % (18.0-47.0); %Monocytes 6.7 % (0.0-10.0); %Neutrophils 48.7 % (40.0-75.0); Hematocrit 45.3 % (34.9-44.5); Hemoglobin 14.9 g/dL (12.0-15.5); Mean Corpuscular Hemoglobin 28.7 pg (27.0-33.0); Mean Corpuscular Volume 87.3 fL (81.6-98.3); Platelet Count 340 10x3/uL (150-450); Red Blood Cell (RBC) Count 5.19 10x6/uL (3.90-5.03); White Blood Cell (WBC) Count 10.51 10x3/uL (3.5-10.5)
[2025-01-22 15:03] LABS: BHCG - Serum Negative (NEGATIVE); Pregs Control Background? CLEAR/WHITE (CLR/WHITE); Pregs Control Bar Appear? YES (CONTROL BAR)
[2025-01-22 15:09] LABS: ALT (SGPT) 16 U/L (Less than 34); AST (SGOT) 17 U/L (11-34); Albumin 4.3 g/dL (3.1-4.5); Alkaline Phosphatase 70 U/L (40-110); Anion Gap 12 mmol/L (10-20); BUN (Urea Nitrogen) 21 mg/dL (7.0-18.7); Bilirubin, Total 0.3 mg/dL (0.3-1.2); Calc. Creatinine Clearance 0 mL/min (70-130); Calcium 9.6 mg/dL (7.8-10.44); Carbon Dioxide 22 mmol/L (22-29); Chloride 110 mmol/L (98-107); Globulin 3.3 g/dL (2.4-3.5); Glucose 81 mg/dL (70-105); Lipase 68 U/L (8-78); Magnesium 2.0 mg/dL (1.6-2.6); Potassium 4.0 mmol/L (3.5-5.1); Sodium 140 mmol/L (136-145)
[2025-01-22] MEDS ORDERED: Droperidol 5 MG/2 ML VIAL ONE (15:12)
[2025-01-22] MEDS ORDERED: Prochlorperazine 10 MG/2 ML VIAL ONE (15:12)
[2025-01-22 16:15] LABS: Glucose, Urine (Dipstick) Normal (Negative); Leukocyte 25 (Negative); Protein, Urine (Dipstick) 30 mg/dl (Neg-Trace); Specific Gravity, Urine 1.020 (1.005-1.030)
[2025-01-22 16:26] LABS: Bacteria/HPF Rare-Few HPF (None Seen); CAUTI Indications for Culture Pelvic or flank pain; RBC/HPF None Seen HPF (0-3); WBC/HPF 0-3 HPF (0-3)
[2025-01-22 16:28] LABS: Urine Culture Reflex No No
== END 2025-01-22 16:50 | disposition home or self-care (01) ==
LOC: CSHERS 13:52
DX: R11.2 Nausea with vomiting, unspecified (principal); E11.9 Type 2 diabetes mellitus without complications; F17.210 Nicotine dependence, cigarettes, uncomplicated
CPT/HCPCS: 80053; 81001; 83690; 83735; 84703; 85025; J0780; J1790; 36415; 96361; 96374; 96375

== ENCOUNTER 2025-02-04 15:20 | Emergency (ER) | payer MEDICARE, MEDICAID | END 2025-02-04 18:12 | disposition home or self-care (01) | LOC: CSHERS 15:20 | DX: M79.674 Pain in right toe(s) (principal); E11.9 Type 2 diabetes mellitus without complications; F17.210 Nicotine dependence, cigarettes, uncomplicated; Z55.6 Problems related to health literacy | CPT/HCPCS: 99283 ==